=== PATIENT | female | born 1995 | race African-American/Black ===

== ENCOUNTER 2017-01-07 15:06 | Emergency (ER) | payer OTHER ==
[2017-01-07 15:34] VITALS: BP 93/47; PULSE 82; TEMP 98.1; BMI 22.9
[2017-01-07 16:49] LABS: URINE APPEARANCE SLCLOUDY; URINE BILIRUBIN NEGATIVE (NEGATIVE); URINE COLOR YELLOW; URINE GLUCOSE (UA) NEGATIVE (NEGATIVE); URINE KETONE NEGATIVE (NEGATIVE); URINE NITRITE NEGATIVE (NEGATIVE); URINE PROTEIN NEGATIVE (NEGATIVE); URINE UROBILINOGEN NEGATIVE E.U./dl (0.2-1.0)
[2017-01-07 17:00] LABS: URINE BLOOD 3+ (NEGATIVE)
[2017-01-07 17:01] LABS: URINE LEUK ESTERASE 1+ (NEGATIVE)
[2017-01-07 17:13] LABS: URINE MUCUS RARE; URINE RBC 344 /hpf (0-3); URINE WBC 15 /hpf (3-5)
--- NOTE | 2017-01-13 13:10 | PDOC ---
Patient Follow-up (Call Back) - Post ED Follow - Up Disposition at time of original discharge: AGAINST MEDICAL ADVICE Reason for Call Back: Abnwl. Microbiology (Lab called to report gonorrhea. Pt was not treated. I called to inform pt of results. States because she refused pelvic exam on last visit after p/w pelvic pain and discharge (of note had been dx w/ gooirrhea but pt was never tx), that ED provider refused to treat her. I explained to patient that exam is necessary to rule out PID, which can cause infertility. I told patient to come in as soon as possible for treatment and encourage pelvic exam. Patient states she is unable to come in today but will come in as soon as she can and states she will still refuse pelvic exam unless we sedate her as she is afraid of exam. When pt returns, should probably be tx empirically for PID...will need ceftriaxone injection in ED and dc w/ doxy x 2 weeks. Chlamydia test was neg)
== END 2017-01-07 17:00 | disposition left against medical advice (07) ==
LOC: JERFT 15:06
DX: Z20.2 Contact with and (suspected) exposure to infections with a predominantly sexual mode of transmission (principal)
CPT/HCPCS: 36415; 81003; 81015; 84703; 87086; 87491; 87591; 99281-25

== ENCOUNTER 2017-01-30 14:22 | Emergency (ER) | payer OTHER ==
[2017-01-30 14:30] VITALS: BMI 22.9
--- NOTE | 2017-01-30 14:31 | PDOC ---
Rapid Medical Evaluation Time Seen by Provider: 01/30/17 14:24 Medical Evaluation: Allergies Allergy/AdvReac Type Severity Reaction Status Date / Time No Known Allergies Allergy Verified 01/07/17 15:30 01/30/17 14:24 I have performed a brief in-person evaluation of this patient. Ms. Goodson is a 21 yo F who presents to the ER because she has a (+) gonorrhea test. Pt was seen 2 weeks ago, with a complaint of vaginal discharge and exposure to someone who tested (+) for gonorrhea G/C cultures sent at that time, she was call approximately 1 week ago with her results Pt denies abdominal pain LMP 01/05? Pt upset that she was not treated when she was originally seen here Pertinent physical exam findings: No lower abd tenderness to palpation Will order BHCG The patient will proceed to the ED for further evaluation. 01/30/17 14:32
[2017-01-30] MEDS ORDERED: AZITHROMYCIN 1 GM PACKET PO ONE (15:53)
--- NOTE | 2017-01-30 15:58 | PDOC ---
[id number] No Limitations - History of Present Illness Initial Comments: CHIEF COMPLAINT: 21 y/o afebrile female here for treatment of gonorrhea. HISTORY OF PRESENT ILLNESS: The patient was seen here on 01/07 and tested for gonorrhea. She was called back on 01/13 and informed she tested positive for gonorrhea and should return to the ER for treatment. She states she was "away" so she couldn't come in for treatment until today. She denies all symptoms including f/c, n/v/d, abnormal vaginal discharge, abd pain. Vital signs on arrival are within normal limits. REVIEW OF SYSTEMS: GENERAL/CONSTITUTIONAL: No fever/chills. No weakness. No weight change. HEAD, EYES, EARS, NOSE AND THROAT: No change in vision. No ear pain or discharge. No sore throat. CARDIOVASCULAR: No chest pain or shortness of breath. RESPIRATORY: No cough, wheezing, or hemoptysis. GASTROINTESTINAL: No abd pain, nausea, vomiting, diarrhea. No abnormal vaginal discharge. GENITOURINARY: No dysuria, frequency, or change in urination. MUSCULOSKELETAL: No joint or muscle swelling or pain. No neck or back pain. SKIN: No rash or easy bruising. NEUROLOGIC: No headache, vertigo, loss of consciousness, or loss of sensation. PHYSICAL EXAM: GENERAL: The patient is awake, alert, and fully oriented, in no acute distress. HEAD: Normal with no signs of trauma. ABDOMEN: Soft, non-distended, non-tender even to deep palpation, no hepatomegaly or splenomegaly, no masses. VAGINAL: REFUSED. EXTREMITIES: Normal range of motion, no edema. NEUROLOGICAL: Normal speech, normal gait. CN II-XII grossly intact. PSYCH: Normal mood, normal affect. SKIN: Warm, dry, normal turgor, no rashes or lesions noted. <Jolanta Campbell - Last Filed: 01/30/17 16:33> <Woodrow lBake - Last Filed: 02/02/17 20:20> - General Chief Complaint: Revisit, Lab Variance Stated Complaint: STD TREATMENT Time Seen by Provider: 01/30/17 14:24 Past History - Past Medical History Anemia: Yes Asthma: Yes Cancer: No Cardiac Disorders: No Diabetes: No HTN: No Seizures: No Thyroid Disease: No - Immunization History Immunization Up to Date: Yes - Psycho/Social/Smoking Cessation Hx Anxiety: No Suicidal Ideation: No Smoking History: Never smoked Have you smoked in the past 12 months: No Number of Cigarettes Smoked Daily: 3 Information on smoking cessation initiated: No Hx Alcohol Use: No Drug/Substance Use Hx: No Substance Use Type: None Hx Substance Use Treatment: No <Jolanta Campbell - Last Filed: 01/30/17 16:33> <Woodrow Blake - Last Filed: 02/02/17 20:20> - Past Medical History Allergies/Adverse Reactions: Allergies Allergy/AdvReac Type Severity Reaction Status Date / Time No Known Allergies Allergy Verified 01/30/17 14:30 Home Medications: Ambulatory Orders NK [No Known Home Medication] 11/03/16 *Physical Exam - Vital Signs Last Vital Signs Temp Pulse Resp BP Pulse Ox 97.6 F 85 18 108/63 100 01/30/17 14:25 01/30/17 14:25 01/30/17 14:25 01/30/17 14:25 01/30/17 14:25 <Jolanta Campbell - Last Filed: 01/30/17 16:33> - Vital Signs Last Vital Signs Temp Pulse Resp BP Pulse Ox 98.4 F 82 16 140/71 100 01/30/17 17:14 01/30/17 17:14 01/30/17 17:14 01/30/17 17:14 01/30/17 14:25 <Woodrow Blake - Last Filed: 02/02/17 20:20> ED Treatment Course - ADDITIONAL ORDERS Additional order review: Laboratory Results 01/30/17 14:40 Urine HCG, Qual Negative <Jolanta Campbell - Last Filed: 01/30/17 16:33> - Medications Given in the ED: ED Medications Discontinued Medications Generic Name Dose Route Start Last Admin Trade Name Freq PRN Reason Stop Dose Admin Azithromycin 1 gm 01/30/17 15:53 01/30/17 16:23 Zithromax - PO 01/30/17 15:54 1 gm ONCE ONE Administration Ceftriaxone Sodium 250 mg 01/30/17 15:53 01/30/17 16:23 Rocephin - IM 01/30/17 15:54 250 mg ONCE ONE Administration <Woodrow Blake - Last Filed: 02/02/17 20:20> Medical Decision Making - Medical Decision Making A/P: 21 y/o patient here for treatment of +gonorrhea. The patient was strongly encouraged to have a vaginal exam but she continues to refuse. She refused on her last visit to the ER. I did inform her that the infection may have intermediate card tender consequences for her reproductive health and strongly encouraged her to follow up with either Dr. Kaufman or at [facility] for a PAP smear. Will treat with IM ceftriaxone and PO azithro. Instructed her to avoid sexual intercourse for 1 week and inform all sexual partners that they should be treated. The patient verbalizes understanding of all instructions, has no further questions and is awaiting discharge. <Jolanta Campbell - Last Filed: 01/30/17 16:33> - Medical Decision Making 02/02/17 20:20 The patient was seen and evaluated in conjunction w I agree with the plan as outlined by JERONIMO Campbell . <Woodrow Blake - Last Filed: 02/02/17 20:20> *DC/Admit/Observation/Transfer <Jolanta Campbell - Last Filed: 01/30/17 16:33> <Woodrow Blake - Last Filed: 02/02/17 20:20> Diagnosis at time of Disposition: Gonorrhea - Discharge Dispostion Disposition: HOME Condition at time of disposition: Good - Referrals Referrals: Africa Kaufman MD [Staff Physician] - - Patient Instructions Printed Discharge Instructions: DI for Gonorrhea Additional Instructions: Discharge Instructions: -You were treated for gonorrhea with Azithromycin and IM Ceftriaxone. No further treatment is necessary. -Please abstain from sexual intercourse for 1 week -Please notify all sexual partners that they should also be treated -Please follow up with Dr. Kaufman or at [facility] for a PAP smear as soon as possible.
[2017-01-30] MEDS ORDERED: cefTRIAXone SODIUM 1 GM VIAL ONE (16:04)
[2017-01-30] MEDS ORDERED: LIDOCAINE HCL/PF 1% SDV 5ML VIAL ONE ×2 (16:07→16:10)
[2017-01-30] MEDS ORDERED: AZITHROMYCIN 250 MG TABLET (FP) ONE (16:07)
[2017-01-30 17:17] VITALS: BP 140/71; PULSE 82; TEMP 98.4
== END 2017-01-30 17:42 | disposition home or self-care (01) ==
LOC: JERFT 14:22 → JER 14:22
DX: A54.9 Gonococcal infection, unspecified (principal)
CPT/HCPCS: 84703; 99282-25

== ENCOUNTER 2017-02-08 15:11 | Emergency (ER) | payer OTHER ==
[2017-02-08 15:20] VITALS: BP 102/69; PULSE 71; TEMP 98.2; BMI 22.9
--- NOTE | 2017-02-08 15:53 | PDOC ---
History of Present Illness - General Chief Complaint: Cold Symptoms Stated Complaint: ALLERGIES Time Seen by Provider: 02/08/17 15:38 History Source: Patient Exam Limitations: No Limitations - History of Present Illness Initial Comments: 02/08/17 15:47 CC seasonal allergies starting, out of meds; no fever 02/08/17 15:48 Timing/Duration: reports: getting worse, week Severity: reports: mild Possible Cause: Yes: allergen exposure, frequent episodes Associated Symptoms: reports: cough, earache, facial pain, nasal congestion, nasal drainage, sore throat. denies: fever/chills, headache, shortness of breath, sinus infection, wheezing Past History - Past Medical History Allergies/Adverse Reactions: Allergies Allergy/AdvReac Type Severity Reaction Status Date / Time No Known Allergies Allergy Verified 02/08/17 15:15 Home Medications: Ambulatory Orders NK [No Known Home Medication] 11/03/16 Anemia: Yes Asthma: Yes Cancer: No Cardiac Disorders: No Diabetes: No HTN: No Seizures: No Thyroid Disease: No - Reproductive History Cervical CA: No Dysfunctional Uterine Bleeding: No Ectopic : No Endometrial CA: No Polycystic Ovaries: No Tubal Ligation: No - Immunization History Immunization Up to Date: Yes - Psycho/Social/Smoking Cessation Hx Anxiety: No Suicidal Ideation: No Smoking History: Never smoked Have you smoked in the past 12 months: No Number of Cigarettes Smoked Daily: 0 Information on smoking cessation initiated: No Hx Alcohol Use: No Drug/Substance Use Hx: No Substance Use Type: None Hx Substance Use Treatment: No Review of Systems - Review of Systems Constitutional: Yes: Malaise. No: Chills, Fever, Loss of Appetite HEENTM: Yes: Nose Pain, Nose Congestion. No: Nose Bleeding, Hearing Loss, Throat Pain, Throat Swelling Respiratory: Yes: Cough. No: Stridor, Wheezing Cardiac (ROS): No: Symptoms Reported, Chest Pain, Edema ABD/GI: No: Symptoms Reported, Diarrhea, Nausea, Vomiting *Physical Exam - Vital Signs Last Vital Signs Temp Pulse Resp BP Pulse Ox 98.2 F 71 20 102/69 98 02/08/17 15:16 02/08/17 15:16 02/08/17 15:16 02/08/17 15:16 02/08/17 15:16 - Physical Exam General Appearance: Yes: Appropriately Dressed HEENT: positive: TMs Normal, Pharynx Normal, Nasal Congestion, Rhinorrhea, Other (with post nasal drip). negative: Tonsillar Erythema, TM Bulging, TM Dull Neck: positive: Supple, Lymphadenopathy (R), Lymphadenopathy (L). negative: Tender, Normal Thyroid, Rigid Respiratory/Chest: positive: Lungs Clear. negative: Normal Breath Sounds, Respiratory Distress, Accessory Muscle Use, Labored Respiration, Wheezing Cardiovascular: positive: Murmur. negative: Regular Rhythm, Regular Rate Gastrointestinal/Abdominal: positive: Soft, Organomegaly. negative: Tender Lymphatic: negative: Adenopathy Medical Decision Making - Medical Decision Making 02/08/17 15:55 will treat seasonal allergies *DC/Admit/Observation/Transfer Diagnosis at time of Disposition: Seasonal allergic rhinitis Qualifiers: Allergic rhinitis trigger: unspecified Qualified Code(s): J30.2 - Other seasonal allergic rhinitis - Discharge Dispostion Disposition: HOME Condition at time of disposition: Stable Admit: No - Referrals Referrals: Alisha Johnson [Staff Physician] - - Patient Instructions Additional Instructions: please follow up with local MD
--- NOTE | 2017-02-09 15:23 | PDOC ---
*Physical Exam - Vital Signs Last Vital Signs Temp Pulse Resp BP Pulse Ox 98.2 F 71 20 102/69 98 02/08/17 15:16 02/08/17 15:16 02/08/17 15:16 02/08/17 15:16 02/08/17 15:16 Medical Decision Making - Medical Decision Making 02/09/17 15:23 Patient contacted ED to inform us that prescription for albuterol pump was never sent to her pharmacy. Albuterol inhaler sent to pharmacy today *DC/Admit/Observation/Transfer Diagnosis at time of Disposition: Seasonal allergic rhinitis Qualifiers: Allergic rhinitis trigger: unspecified Qualified Code(s): J30.2 - Other seasonal allergic rhinitis - Discharge Dispostion Disposition: HOME Condition at time of disposition: Stable - Prescriptions Prescriptions: Loratadine [Claritin] 10 mg PO DAILY #30 tablet Triamcinolone Acetonide [Nasacort] 16.9 ml NS BID #1 spray Albuterol Sulfate Inhaler - [Ventolin HFA Inhaler -] 1 - 2 inh PO Q4H #1 inhaler - Referrals Referrals: Alisha Johnson [Staff Physician] - - Patient Instructions Additional Instructions: please follow up with local MD - Post Discharge Activity
== END 2017-02-08 16:07 | disposition home or self-care (01) ==
LOC: JERFT 15:11
DX: J30.2 Other seasonal allergic rhinitis (principal)
CPT/HCPCS: 99281-25

== ENCOUNTER 2017-09-09 16:37 | Emergency (ER) | payer OTHER ==
[2017-09-09 16:44] VITALS: BP 105/74; PULSE 95; TEMP 98.7; BMI 21.9
[2017-09-09] MEDS ORDERED: ALBUTEROL SO4 2.5/IPRATROPIUM 0.5 INH SOL 3 ML VIAL.NEB. NEB ONE ×2 (16:50→17:07)
--- NOTE | 2017-09-09 16:56 | PDOC ---
History of Present Illness - General Chief Complaint: Asthma Stated Complaint: ASTHMA Time Seen by Provider: 09/09/17 16:45 History Source: Patient Exam Limitations: No Limitations - History of Present Illness Initial Comments: 09/09/17 16:52 22 yr female with c/o cough shortness of breath for 3 days. Pt has history of asthma on claritin, albuterol inhaler at home. Pt states she is 4 months denies vaginal bleeding. Pt is c/o dysuria. Denies abd pain or back pain. Pt has history of UTI states she did not finish her antibiotics last month. denies fever or shills. followed at [address] [place] [address]. Severity: reports: mild Associated Symptoms: reports: cough, nasal congestion Past History - Past Medical History Allergies/Adverse Reactions: Allergies Allergy/AdvReac Type Severity Reaction Status Date / Time No Known Allergies Allergy Verified 09/09/17 16:44 Home Medications: Ambulatory Orders Albuterol Sulfate Inhaler - [Ventolin HFA Inhaler -] 1 - 2 inh PO Q4H #1 inhaler 09/09/17 Anemia: Yes Asthma: Yes Cancer: No Cardiac Disorders: No Diabetes: No HTN: No Seizures: No Thyroid Disease: No - Reproductive History Cervical CA: No Dysfunctional Uterine Bleeding: No Ectopic : No Endometrial CA: No Polycystic Ovaries: No Tubal Ligation: No - Immunization History Immunization Up to Date: Yes - Suicide/Smoking/Psychosocial Hx Smoking History: Never smoked Have you smoked in the past 12 months: No Number of Cigarettes Smoked Daily: 0 Information on smoking cessation initiated: No Hx Alcohol Use: No Drug/Substance Use Hx: No Substance Use Type: None Hx Substance Use Treatment: No Respiratory Specific PMHX - Complaint Specific PMHX Angina: No Bronchitis: No Pneumonia: No Pulmonary Embolus: No TB (Tuberculosis): No Review of Systems - Review of Systems Able to Perform ROS?: Yes Is the patient limited Setswana proficient: No Constitutional: No: Symptoms Reported HEENTM: Yes: Nose Congestion Respiratory: Yes: Cough *Physical Exam - Vital Signs Last Vital Signs Temp Pulse Resp BP Pulse Ox 98.7 F 95 H 18 105/74 100 09/09/17 16:40 09/09/17 16:40 09/09/17 16:40 09/09/17 16:40 09/09/17 16:40 - Physical Exam General Appearance: Yes: Nourished, Appropriately Dressed HEENT: positive: EOMI, GALILEA Neck: positive: Supple. negative: Tender Respiratory/Chest: positive: Lungs Clear, Normal Breath Sounds, Wheezing (mild exp ) Cardiovascular: positive: Regular Rhythm, Regular Rate Gastrointestinal/Abdominal: positive: Normal Bowel Sounds, Soft Lymphatic: negative: Adenopathy Musculoskeletal: positive: Normal Inspection Extremity: positive: Normal Capillary Refill, Normal Inspection, Normal Range of Motion Integumentary: positive: Normal Color, Dry, Warm Neurologic: positive: Fully Oriented, Alert, Normal Mood/Affect, Normal Response , Motor Strength 03/20 Progress Note - Progress Note Progress Note: pt has no wheezing after second treatment moving air well all timmons no acute distress sitting comfortably texting on cell phone pt refused to give urine states she will follow up with her PMD Medical Decision Making - Medical Decision Making 09/09/17 16:57 cc: cough chest tightness, vitals stable pt speaking full clear sentences will give duoneb, check UA no history of intubations pt LMP 04/07/17 denies any abd pain or bleeding has care at [address] [place] [address] 09/09/17 17:00 *DC/Admit/Observation/Transfer Diagnosis at time of Disposition: Asthma Qualifiers: Asthma severity: mild Asthma persistence: intermittent Asthma complication type : with acute exacerbation Qualified Code(s): J45.21 - Mild intermittent asthma with (acute) exacerbation - Discharge Dispostion Disposition: HOME Condition at time of disposition: Improved - Prescriptions Prescriptions: Albuterol Sulfate Inhaler - [Ventolin HFA Inhaler -] 1 - 2 inh PO Q4H #1 inhaler - Patient Instructions Additional Instructions: follow with your Primary care doctor in 3-5 days for follow up regarding your asthma you may also follow with your [facility]ICE as planned for care follow up drink at lest 2 liters of water a day avoid smoke exposure, avoid strenuous activity if this brings on your asthma return to ER for any worsening symptoms
[2017-09-09] MEDS ORDERED: ALBUTEROL SO4 0.083% IH SOL 2.5 MG/3 ML VIAL.NEB. NEB ONE ×2 (18:02→18:08)
== END 2017-09-09 19:01 | disposition home or self-care (01) ==
LOC: JERFT 16:37
PROC: 3E0F7GC Introduction of Other Therapeutic Substance into Respiratory Tract, Via Natural or Artificial Opening (ICD-10-PCS; principal; 2017-09-09)
PROC: 3E0333Z Introduction of Anti-inflammatory into Peripheral Vein, Percutaneous Approach (ICD-10-PCS; 2017-09-09)
DX: O99.512 Diseases of the respiratory system complicating pregnancy, second trimester (principal); J45.21 Mild intermittent asthma with (acute) exacerbation; Z3A.22 22 weeks gestation of pregnancy
CPT/HCPCS: 99281-25

== ENCOUNTER 2017-09-11 12:21 | Emergency (ER) | payer OTHER ==
--- NOTE | 2017-09-11 12:30 | PDOC ---
History of Present Illness - General Stated Complaint: ASTHMA Time Seen by Provider: 09/11/17 12:21 History Source: Patient Exam Limitations: No Limitations - History of Present Illness Initial Comments: 09/11/17 12:26 The patient is a 22F at ~5 months (LMP unsure but states "end of March") with a PMH of asthma who presents to the ED via EMS for an acute exacerbation of asthma. The patient was seen here 2 days ago for similar symptoms and was discharged with albuterol. The patient states that she is "just getting over a cold" but still has a cough. Patient states she has some chest discomfort but thinks it is secondary to her cold/cough/asthma. She denies any nausea, vomiting , diaphoresis, radiating CP. Past History - Past Medical History Allergies/Adverse Reactions: Allergies Allergy/AdvReac Type Severity Reaction Status Date / Time No Known Allergies Allergy Verified 09/09/17 16:44 Home Medications: Ambulatory Orders Albuterol Sulfate Inhaler - [Ventolin HFA Inhaler -] 1 - 2 inh PO Q4H #1 inhaler 09/09/17 Prednisone [Deltasone -] 40 mg PO DAILY #4 tablet 09/11/17 Anemia: Yes Asthma: Yes Cancer: No Cardiac Disorders: No Diabetes: No HTN: No Seizures: No Thyroid Disease: No - Reproductive History Cervical CA: No Dysfunctional Uterine Bleeding: No Ectopic : No Endometrial CA: No Polycystic Ovaries: No Tubal Ligation: No - Immunization History Immunization Up to Date: Yes - Suicide/Smoking/Psychosocial Hx Smoking History: Never smoked Have you smoked in the past 12 months: No Number of Cigarettes Smoked Daily: 0 Hx Alcohol Use: No Drug/Substance Use Hx: No Substance Use Type: None Hx Substance Use Treatment: No Review of Systems - Review of Systems Able to Perform ROS?: Yes Comments:: 09/11/17 13:12 GENERAL/CONSTITUTIONAL: No fever or chills. No weakness. HEAD, EYES, EARS, NOSE AND THROAT: No change in vision. No ear pain or discharge. No sore throat. GASTROINTESTINAL: No nausea, vomiting, diarrhea, constipation, or abdominal pain. GENITOURINARY: Positive for some vaginal bleeding (spotting). No dysuria, frequency, hematuria, or change in urination. CARDIOVASCULAR: Positive for chest tightness. No chest pain, palpitations, or lightheadedness. RESPIRATORY: Postive for cough, wheezing, and shortness of breath. No hemoptysis. MUSCULOSKELETAL: No joint or muscle swelling or pain. No neck or back pain. SKIN: No rash or lesions. NEUROLOGIC: No headache, numbness, tingling, weakness, loss of consciousness, or change in strength/sensation. ENDOCRINE: No increased thirst. No abnormal weight change. HEMATOLOGIC/LYMPHATIC: No anemia, easy bleeding, or history of blood clots. ALLERGIC/IMMUNOLOGIC: No hives or skin allergy. Is the patient limited Turkmen proficient: No *Physical Exam - Physical Exam Comments: 09/11/17 13:14 GENERAL: Well developed, well nourished. Awake and alert. No acute distress. HEENT: Normocephalic, atraumatic. PERRLA, EOMI. No conjunctival pallor. Sclera are non-icteric. Moist mucous membranes. Oropharynx is clear. NECK: Supple. Full ROM. No JVD. CARDIOVASCULAR: Tachycardic with regular rhythm. No murmurs, rubs, or gallops. Distal pulses are 2+ and symmetric. PULMONARY: No evidence of respiratory distress. B/l diffuse wheezing bilaterally. ABDOMINAL: Soft. Non-tender. Non-distended. No rebound or guarding. No organomegaly. Normoactive bowel sounds. Gravid. GENITOURINARY: No CVA tenderness bilaterally. MUSCULOSKELETAL: Normal range of motion at all joints. No bony deformities or tenderness. EXTREMITIES: No cyanosis. No clubbing. No edema. No calf tenderness. SKIN: Warm and dry. Normal capillary refill. No rashes. No jaundice. NEUROLOGICAL: Alert, awake, appropriate. Gait is normal without ataxia. PSYCHIATRIC: Cooperative. Good eye contact. Appropriate mood and affect. ED Treatment Course - LABORATORY CBC & Chemistry Diagram: 09/11/17 12:45 09/11/17 12:45 Medical Decision Making - Medical Decision Making 09/11/17 13:16 The patient is a 22F with a PMH of asthma who presents in an acute asthma exacerbation. The patient states that this happened 2 days ago and she was given an albuterol treatment. She is diffusely wheezy. Will reassess when labs return. Patient has expressed to my attending that she is having vaginal spotting. Will pursue this with PT and vaginal U/S. 09/11/17 15:05 U/S shows of 21w2d with placenta previa. Will page Dr. Love for observation of fetus and patient. *DC/Admit/Observation/Transfer Diagnosis at time of Disposition: Placenta previa, , Asthma - Discharge Dispostion Disposition: HOME Condition at time of disposition: Stable - Prescriptions Prescriptions: Prednisone [Deltasone -] 40 mg PO DAILY #4 tablet - Referrals Referrals: Esvin Clark MD [Staff Physician] - Jim Jimenez MD [Staff Physician] - - Patient Instructions Printed Discharge Instructions: Asthma -- Adult, DI for Vaginal Bleeding During Additional Instructions: Please start taking vitamins. Please follow up with the SMUTTER and your PMD. Please take all meds as prescribed. Print Language: GREEK
[2017-09-11] MEDS ORDERED: methylPREDNISolone NA SUCC 125 MG/2 ML VIAL IVPUSH ONE (12:31)
[2017-09-11] MEDS ORDERED: SODIUM CHLORIDE 0.9% 1000 ML INFUS.BAG IV ONE (12:31)
[2017-09-11] MEDS ORDERED: ALBUTEROL SO4 2.5/IPRATROPIUM 0.5 INH SOL 3 ML VIAL.NEB. NEB ONE ×2 (12:53→12:57)
[2017-09-11] MEDS ORDERED: methylPREDNISolone NA SUCC 125 MG/2 ML VIAL ONE (12:54)
[2017-09-11 13:04] LABS: BASOPHIL 0.4 % (0-2.0); EOSINOPHIL 5.6 % (0-4.5); MCH 23.3 pg (25.7-33.7); MCHC 32.4 g/dl (32.0-36.0); MEAN PLT VOLUME 8.9 fl (7.5-11.1); PLATELET COUNT 227 K/MM3 (134-434); RDW 14.1 % (11.6-15.6)
[2017-09-11 13:13] VITALS: BMI 42.2
[2017-09-11 13:22] LABS: ANION GAP 8 (8-16); BILIRUBIN,TOTAL 0.8 mg/dL (0.2-1.0); CALCIUM 8.2 mg/dL (8.5-10.1); CO2 21 mmol/L (21-32); CREATININE 0.5 mg/dL (0.55-1.02); GLUCOSE,RANDOM 94 mg/dL (74-106); MAGNESIUM 1.8 mg/dL (1.8-2.4); SGOT/AST 22 U/L (15-37); SGPT/ALT 15 U/L (12-78); TOT PROT 7.2 g/dl (6.4-8.2)
--- NOTE | 2017-09-11 13:30 | PDOC ---
Attending Attestation - [facility] HPI: 09/11/17 13:58 The patient is a 22 year old approximately 16 weeks female (), LMP in March, with a significant past medical history of asthma and UTIs who presents to the emergency department [facility] with vaginal spotting and acute exacerbation of asthma. Patient was seen in the ED 2 days ago with similar symptoms, and was discharged on Albuterol. The patient reports a cough and some chest discomfort but secondary to her cold/cough/asthma. She denies any nausea, vomiting, or diaphoresis. Patient reports she has noted some vaginal spotting while wiping. Patient reports she typically develops vaginal bleeding with her UTIs. Patient states she went to [address] [place] [address], where she had a positive test, but states she has not had any care or US since. She denies any associated abdominal pain, heavy bleeding, or vaginal discharge. - Physicial Exam PE: 09/11/17 13:59 Constitutional: Awake, alert, oriented. No acute distress. Head: Normocephalic. Atraumatic Eyes: PERRL. EOMI. Conjunctivae are not pale. ENT: Mucous membranes are moist and intact. Posterior pharynx without exudates or erythema. Uvula midline. Neck: Supple. Full ROM. No lymphadenopathy. Cardiovascular: Regular rate. Regular rhythm. S1, S2 regular. Distal pulses are 2+ and symmetric. Pulmonary/Chest: No evidence of respiratory distress. Diffuse wheezing. No rales or rhonchi. Abdominal: Soft and non-distended. There is no tenderness. No rebound, guarding or rigidity. No organomegaly. No palpable masses. Good bowel sounds. Back: No CVA tenderness. Musculoskeletal: No edema. No cyanosis. No clubbing. Full range of motion in all extremities. Nocalf tenderness. Radial/pedal pulses are intact and 2+ bilaterally Skin: Skin is warm and dry. No petechiae. No purpura. Neurological: Alert and oriented to person, place, and time. Cranial nerves II -XII are grossly intact. Normal speech. Strength is grossly symmetric. No sensory deficits. Psychiatric: Good eye contact. Normal interaction, affect and behavior. - Medical Decision Making 09/11/17 14:00 EXAM: Obstetrics US INTERPRETED BY: Dr. Walters REVIEWED BY: Dr. Andre IMPRESSION: Single viable intrauterine gestation at approximately 21 weeks 2 days. Placenta previa. First call placed to Dr. Love at 15:13. Awaiting call back. Documentation prepared by Daryl Rodriguez, acting as expert medical writer for Ammy Andre DO. <Daryl Rodriguez - Last Filed: 09/11/17 15:12> - Resident Resident Name: Edson Jerome - ED Attending Attestation I have performed the following: I have examined & evaluated the patient, The case was reviewed & discussed with the resident, I agree w/resident's findings & plan, Exceptions are as noted - Medical Decision Making 09/11/17 13:29 a/p: 22yo at poss 16 weeks gestation with asthma and vaginal bleeding -concern given no care, not on vitamins, -labs -type and screen was o+ -beta -ultrasound -ua -hx of UTI -also nebs, steroids, fluids for asthma -will monitor and reassess 09/11/17 15:13 called by radiology - pt with 21wk fetus, placental previa - call placed to Dr. Love for consult. Pt will need to go to L&D for monitoring and further eval. Pt updated and agrees with the plan. Pt is willing to go to L&D. call placed to L&D, case discussed with Kassandra. 09/11/17 15:[address] Jimenez who agrees with sending the patient to l&d. 09/11/17 15:55 <Ammy Andre - Last Filed: 09/11/17 15:55> Discharge Disposition <Daryl Rodriguez - Last Filed: 09/11/17 15:12> - Discharge Dispostion Last Admission D/C Date: 03/26/16 Admit: No <Ammy Andre - Last Filed: 09/11/17 15:55> - Diagnosis Placenta previa, , Asthma - Prescriptions Prescriptions: Prednisone [Deltasone -] 40 mg PO DAILY #4 tablet - Referrals Referrals: Jim Jimenez MD [Staff Physician] - Esvin Clark MD [Staff Physician] - - Patient Instructions Printed Discharge Instructions: Asthma -- Adult, DI for Vaginal Bleeding During Additional Instructions: Please start taking vitamins. Please follow up with the [employer] and your PMD. Please take all meds as prescribed.
[2017-09-11 13:38] LABS: ALK PHOS 176 U/L (45-117)
[2017-09-11 15:14] LABS: URINE APPEARANCE SLCLOUDY; URINE BILIRUBIN NEGATIVE (NEGATIVE); URINE BLOOD 1+ (NEGATIVE); URINE COLOR LTYELLOW; URINE GLUCOSE (UA) NEGATIVE (NEGATIVE); URINE KETONE NEGATIVE (NEGATIVE); URINE NITRITE NEGATIVE (NEGATIVE); URINE PROTEIN NEGATIVE (NEGATIVE); URINE UROBILINOGEN NEGATIVE mg/dL (0.2-1.0)
[2017-09-11 15:45] LABS: URINE RBC 1 /hpf (0-3); URINE WBC 8 /hpf (3-5)
[2017-09-11 17:48] VITALS: BP 102/62; PULSE 92; TEMP 97.8
[2017-09-11 19:20] LABS: URINE LEUK ESTERASE TRACE (NEGATIVE)
== END 2017-09-11 17:49 | disposition home or self-care (01) ==
LOC: JER 12:21
DX: O99.512 Diseases of the respiratory system complicating pregnancy, second trimester (principal); O26.892 Other specified pregnancy related conditions, second trimester; J45.901 Unspecified asthma with (acute) exacerbation; O44.02 Complete placenta previa NOS or without hemorrhage, second trimester; Z3A.22 22 weeks gestation of pregnancy
CPT/HCPCS: 36415; 76801-TC; 80053; 81003; 81015; 83735; 84702; 85025; 99281-25